=== PATIENT | male | born 1965 | race Two or more races ===

== ENCOUNTER 2020-07-29 11:19 | Outpatient (RCR) | payer MEDICARE, SELFPAY ==
[2020-07-29] MEDS: COVID-19 VACC, MRNA(PFIZER)/PF 30 MCG/0.3 ML SYRINGE IM (14:36)
[2020-08-19] MEDS: COVID-19 VACC, MRNA(PFIZER)/PF 30 MCG/0.3 ML SYRINGE IM (14:54)
== END 2020-10-21 23:59 ==
LOC: IMMUN 11:19
PROVIDERS: Referring Provider Family Medicine; Visit Provider Family Medicine
DX: Z23 Encounter for immunization (principal)
CPT/HCPCS: 0001A; 0002A; 91300